=== PATIENT | female | born 1955 | race Hispanic/Latino ===

== ENCOUNTER 2018-11-06 09:27 | Outpatient (CLI) | payer OTHER | END 2018-11-06 09:28 | disposition home or self-care (01) | LOC: LAB 09:27 | DX: E78.2 Mixed hyperlipidemia (principal); E55.9 Vitamin D deficiency, unspecified; E03.9 Hypothyroidism, unspecified; E21.3 Hyperparathyroidism, unspecified ==

== ENCOUNTER 2018-12-13 18:34 | Emergency (ER) | payer BC ==
[2018-12-13 19:12] VITALS: BMI 31.3
--- NOTE | 2018-12-13 19:14 | ED PDOC ---
Arrival/HPI - General Time Seen by Provider: 12/13/18 19:06 Historian: Patient - History of Present Illness Narrative History of Present Illness (Text): 12/13/18 19:10 63 y/o female, pmh including htn/hypothyroidism, nkda, c/o rt. elbow and shoulder pain s/p fall about 2 hours ago and took motrin prior to the arrival. Pt. was at ice skating, fall and landed on the rt. shoulder/elbow region, no head/neck/back/chest/abdominal or other extremity injury, no LOC, not on any antiplatete or anticoagulant, able to recall the whole event, took motrin prior to arrival and feel better already. Past Medical History - Provider Review Nursing Documentation Reviewed: Yes - Cardiac Hx Pacemaker: No - Neurological Hx Paralysis: No - Hematological/Oncological Hx Blood Transfusions: No - Musculoskeletal/Rheumatological Hx Musculoskeletal Disorders: Yes - Psychiatric Hx Emotional Abuse: No Hx Physical Abuse: No Hx Substance Use: No - Anesthesia Hx Anesthesia Reactions: No Hx Malignant Hyperthermia: No - Suicidal Assessment Feels Threatened In Home Enviroment: No Family/Social History - Physician Review Nursing Documentation Reviewed: Yes Family/Social History: Unknown Family HX Hx Alcohol Use: No Hx Substance Use: No Allergies/Home Meds Allergies/Adverse Reactions: Allergies No Known Allergies Allergy (Verified 01/19/15 11:33) Home Medications: Home Meds Medication Instructions Recorded Confirmed Cyanocobalamin [Vitamin B12] 2,500 mcg SL DAILY 01/19/15 01/20/15 Folic Acid 1 mg PO DAILY 01/19/15 01/20/15 Ibandronate Sodium [Boniva] 150 mg PO Q30D 01/19/15 01/20/15 Levothyroxine [Synthroid] 0.025 mg PO QAM 01/19/15 01/20/15 Ranitidine HCl [Zantac 150] 150 mg PO BID 01/19/15 01/20/15 amLODIPine [Norvasc] 5 mg PO DAILY 01/19/15 01/20/15 Review of Systems - Review of Systems Constitutional: absent: Fatigue, Fevers Eyes: absent: Vision Changes ENT: absent: Hearing Changes Respiratory: absent: SOB, Cough Cardiovascular: absent: Chest Pain Gastrointestinal: absent: Abdominal Pain, Diarrhea, Nausea, Vomiting Musculoskeletal: Arthralgias, Myalgias. absent: Back Pain, Neck Pain, Joint Swelling Skin: absent: Rash, Pruritis Neurological: absent: Headache, Dizziness Psychiatric: absent: Anxiety, Depression, Suicidal Ideation Physical Exam Vital Signs Reviewed: Yes - Systems Exam Head: Present: Atraumatic, Normocephalic. No: Tenderness, Contusion, Swelling, Ecchymosis, Abrasion, Laceration, Other Pupils: Present: PERRL Extroacular Muscles: Present: EOMI Conjunctiva: Present: Normal Mouth: Present: Moist Mucous Membranes Nose (External): Present: Atraumatic. No: Abrasion, Contusion, Laceration Nose (Internal): Present: Normal Inspection, No Active Bleeding Neck: Present: Normal Range of Motion, Trachea Midline. No: Meningeal Signs, MIDLINE TENDERNESS, Paraspinal Tenderness Respiratory/Chest: Present: Clear to Auscultation, Good Air Exchange. No: Respiratory Distress, Accessory Muscle Use Cardiovascular: Present: Regular Rate and Rhythm, Normal S1, S2. No: Murmurs Abdomen: No: Tenderness, Distention, Peritoneal Signs Back: Present: Normal Inspection Upper Extremity: Present: Normal Inspection, Other (RUE: no significant tenderness or swelling, pain with rt. elbow and shoulder movement and subjective feeling stiffness, no deformity, FROM without limitation, sensation intact, motor 5/5, +radial pulse, capillary refill< 2 seconds, neurovascular intact, no scaphoid tenderness. ). No: Cyanosis, Edema Lower Extremity: Present: Normal Inspection. No: Edema Neurological: Present: GCS=15, CN II-XII Intact, Speech Normal, Motor Func Grossly Intact, Normal Cerebellar Funct, Gait Normal, Memory Normal Skin: Present: Warm, Dry, Normal Color. No: Rashes Psychiatric: Present: Alert, Oriented x 3, Normal Insight, Normal Concentration Medical Decision Making ED Course and Treatment: 12/13/18 19:16 -Rt. shoulder and elbow xray -Flexeril -Observe and reassess 12/13/18 21:04 -Rt. shoulder xray ER wet read: +humeral head fracture. -Rt. elbow xray ER wet read: +radial head fracture. -Pt. has full neurovascular intact on the Rt. upper extremity with no focal neurological deficits. -Long arm splint and shoulder sling applied by me with neurovascular intact, di scussed with the patient and CD provided as she would see her own orthopedic Dr. López. Percocet ordered for her. -Discharge home with sling, long arm splint, percocet, copy of CD, follow up with your own pmd and favorite orthopedic within 2 days, return to the ER for any new or worsening signs or symptoms. - RAD Interpretation Radiology Orders: Rt. shoulder: Date of service: 12/13/2018 PROCEDURE: Radiographs of the Right Shoulder HISTORY: pain, s/p fall COMPARISON: No prior. FINDINGS: BONES: There is an acute transverse impacted fracture in the surgical neck of the humerus with 1 cortex with medial displacement. JOINTS: Normal. Glenohumeral and acromioclavicular joints preserved. No osteoarthritis. SOFT TISSUES: Normal. OTHER FINDINGS: None. IMPRESSION: Acute transverse impacted fracture in the surgical neck of the humerus. No dislocation. Rt. elbow: Date of service: 12/13/2018 PROCEDURE: Radiographs of the right elbow. HISTORY: fall and pain COMPARISON: No prior. TECHNIQUE: 3 views obtained. FINDINGS: BONES: There is an acute transverse nondisplaced fracture in the head of the radius. Bone alignment and mineralization are normal. JOINTS: Normal. No osteoarthritis. SOFT TISSUES: Normal. JOINT EFFUSION: None. OTHER FINDINGS: None. IMPRESSION: Acute transverse nondisplaced fracture in the head of the radius. Paper Gluing Operator: Radiologist - PA / BUSINESS SERVICES VICE PRESIDENT / Resident Statement /DO has reviewed & agrees with the documentation as recorded. Disposition/Present on Arrival - Present on Arrival Any Indicators Present on Arrival: No History of DVT/PE: No History of Uncontrolled Diabetes: No Urinary Catheter: No History of Decub. Ulcer: No - Disposition Have Diagnosis and Disposition been Completed?: Yes Diagnosis: Elbow fracture, Humeral head fracture Disposition: HOME/ ROUTINE Disposition Time: 21:18 Patient Plan: Discharge Condition: IMPROVED Discharge Instructions (ExitCare): Elbow Fracture (DC), Shoulder Fracture (DC) Additional Instructions: -Discharge home with sling, long arm splint, percocet, copy of CD, follow up with your own pmd and favorite orthopedic within 2 days, return to the ER for any new or worsening signs or symptoms. Prescriptions: oxyCODONE/Acetaminophen [Percocet 5/325 mg Tab] 1 tab PO TID #14 tab Referrals: Javier Pina MD [Primary Care Provider] - Follow up with primary Arthur López MD [Staff Provider] - Follow up with primary Forms: WORK NOTE
[2018-12-13 20:34] VITALS: BP 122/75; PULSE 67; RESP 18; TEMP 97.8; O2SAT 97
[2018-12-13] MEDS ORDERED: Oxycodone/Acetaminophen 5/325 mg Tab PO STA (21:16)
--- NOTE | 2018-12-14 12:03 | RAD ---
Date of service: 12/13/2018 PROCEDURE: Radiographs of the Right Shoulder HISTORY: pain, s/p fall COMPARISON: No prior. FINDINGS: BONES: There is an acute transverse impacted fracture in the surgical neck of the humerus with 1 cortex with medial displacement. JOINTS: Normal. Glenohumeral and acromioclavicular joints preserved. No osteoarthritis. SOFT TISSUES: Normal. OTHER FINDINGS: None. IMPRESSION: Acute transverse impacted fracture in the surgical neck of the humerus. No dislocation.
--- NOTE | 2018-12-14 12:04 | RAD ---
Date of service: 12/13/2018 PROCEDURE: Radiographs of the right elbow. HISTORY: fall and pain COMPARISON: No prior. TECHNIQUE: 3 views obtained. FINDINGS: BONES: There is an acute transverse nondisplaced fracture in the head of the radius. Bone alignment and mineralization are normal. JOINTS: Normal. No osteoarthritis. SOFT TISSUES: Normal. JOINT EFFUSION: None. OTHER FINDINGS: None. IMPRESSION: Acute transverse nondisplaced fracture in the head of the radius.
== END 2018-12-13 21:28 | disposition home or self-care (01) ==
LOC: ED 18:34
DX: S42.291A Other displaced fracture of upper end of right humerus, initial encounter for closed fracture (principal); V00.211A Fall from ice-skates, initial encounter; Y93.21 Activity, ice skating; I10 Essential (primary) hypertension; E03.9 Hypothyroidism, unspecified

== ENCOUNTER 2018-12-16 12:54 | Outpatient (CLI) | payer BC | END 2018-12-16 12:55 | disposition home or self-care (01) | LOC: RAD 12:55 ==

== ENCOUNTER 2019-02-03 13:17 | Outpatient (CLI) | payer BC | END 2019-02-03 13:18 | disposition home or self-care (01) | LOC: RAD 13:17 ==